=== PATIENT | female | born 1955 | race Caucasian/White ===

== ENCOUNTER → 2016-10-01 | Day surgery (SDC) | payer BC ==
[~2016-10-01] MED LIST: MULTI VITAMIN1 EACH PO; VITAMIN E100 UNI3 PO; ZYRTEC-D TABLE1 EACH PO
--- NOTE | ~2016-10-01 | OR ---
Unit #: [id number] #: [id number] Patient: DEION JORDAN [id number] [address] [address] [id number] O MR#: [id number] NAME: DEION JORDAN. ROOM: Date of Procedure: 10/01/2016 Admission Date: 10/01/2016 Surgeon: Kiet Perez M.D. : 1955 Attending Physician: Kiet Perez M.D. Primary Care Physician: Rohan Jordan M.D. OPERATIVE REPORT PROCEDURE PERFORMED Colonoscopy with biopsy. INDICATIONS FOR PROCEDURE Average risk for colorectal cancer. MEDICATIONS Monitored anesthesia. POSTOPERATIVE FINDINGS 1. No polyps or masses. 2. Nonspecific appearing colitis involving sigmoid colon. Biopsies were taken. 3. Internal hemorrhoids. 4. Good prep. PLAN Follow up on the pathology report. Further recommendations to follow. DESCRIPTION OF PROCEDURE The patient was explained of the procedure, risks, and benefits along with risks and benefits of anesthesia. She was brought to the endoscopy room. Propofol anesthesia was given. Rectal exam was done, which was normal. Colonoscope was lubricated, passed up the rectum, advanced under direct vision all the way to the cecum. Cecum was identified by ileocecal valve and appendiceal orifice. I then started to pull the scope out carefully looking. Nonspecific colitis seen in sigmoid colon was biopsied. No polyps or masses. I retroflexed in the rectum, internal hemorrhoids noted. The scope was gently pulled out. She tolerated it well. Dictated by... Ana Bustillos/prakash TD: 10/20/2016 15:14 JOB #: [id number] Unit #: [id number] #: [id number] Patient: DEION JORDAN OPERATIVE REPORT Page 1 of 1 X Kiet Perez MD X PROCEDURE OPERATIVE NOTE
== END | disposition home or self-care (01) ==
LOC: COPS 08:24
DX: Z12.11 Encounter for screening for malignant neoplasm of colon (principal); K52.9 Noninfective gastroenteritis and colitis, unspecified; K64.8 Other hemorrhoids; Z79.899 Other long term (current) drug therapy; Z90.721 Acquired absence of ovaries, unilateral; Z98.890 Other specified postprocedural states
CPT/HCPCS: 88305